=== PATIENT | female | born 1985 | race Caucasian/White ===

== ENCOUNTER 2017-05-16 16:52 | Inpatient (IN) | payer MEDICAID ==
[~2017-05-16] VITALS: Ht 170.2 cm; Wt 114.2 kg
[~2017-05-16 16:52] MED LIST: DIAZ2TAB PO; HYDR-3240 PO; LEVO175T5 PO; POLY17PO5 PO
[2017-05-16] MEDS ORDERED: LIDOCAINE 1%, 20ML SQ ONE (17:30)
[2017-05-16] MEDS ORDERED: HYDROmorphone 1 MG/ML, 1ML IVPush PRN (17:30)
[2017-05-16] MEDS ORDERED: CLINDAMYCIN PMX 900MG/50ML 50 ML IVPB ONE (17:30)
[2017-05-16] MEDS ORDERED: SODIUM CHLORIDE FLUSH 10ML SYR IVF ONE (17:30)
[2017-05-16] MEDS ORDERED: ONDANSETRON 2MG/ML, 2ML IVPush ONE (17:30)
[2017-05-16] MEDS ORDERED: SODIUM CHLORIDE 0.9% 1,000ML IVBOLUS ONE (17:30)
[2017-05-16] MEDS ORDERED: HYDROmorphone 1 MG/ML, 1ML ONE ×2 (18:22→19:50)
[2017-05-16] MEDS ORDERED: ONDANSETRON 2MG/ML, 2ML ONE (18:22)
[2017-05-16] MEDS ORDERED: LIDOCAINE 1%, 20ML ONE (18:22)
[2017-05-16] MEDS ORDERED: CLINDAMYCIN PMX 900MG/50ML 50 ML ONE (18:22)
[2017-05-16 19:12] LABS: HEMATOCRIT 37.2 % (34.6-47.8); HEMOGLOBIN 12.4 g/dL (11.7-16.4); WHITE BLOOD COUNT 17.3 x10^3/uL (3.4-10)
[2017-05-16 19:23] LABS: BLOOD UREA NITROGEN 9 mg/dL (7-18)
[2017-05-16] MEDS: KETOROLAC 30 MG/1 ML IVPush SCH (20:30)
[2017-05-16] MEDS: HEPARIN 5,000 UNITS/ML, 1ML SQ SCH (20:30)
[2017-05-16] MEDS ORDERED: BISACODYL 10 MG SUPP PR PRN (20:30)
[2017-05-16] MEDS ORDERED: ACETAMINOPHEN 325 MG TABLET PO PRN (20:30)
[2017-05-16] MEDS: SODIUM CHLORIDE FLUSH 10ML SYR IVF SCH (21:00)
[2017-05-16 21:10] VITALS: BP 113/75
[2017-05-17] MEDS: HYDROcodone/APAP 5/325 TABLET PO PRN ×3 (00:50→17:02)
[2017-05-17 00:53] VITALS: BP 118/77
[2017-05-17 01:48] VITALS: BP 113/79
[2017-05-17] MEDS: KETOROLAC 30 MG/1 ML IVPush SCH ×5 (02:30→21:23)
[2017-05-17] MEDS: CLINDAMYCIN PMX 600MG/50ML 50 ML IV SCH ×3 (03:36→21:24)
[2017-05-17] MEDS: HEPARIN 5,000 UNITS/ML, 1ML SQ SCH ×3 (04:30→21:23)
[2017-05-17 05:46] LABS: HEMATOCRIT 35.2 % (34.6-47.8); HEMOGLOBIN 11.8 g/dL (11.7-16.4); WHITE BLOOD COUNT 14.4 x10^3/uL (3.4-10)
[2017-05-17 06:02] LABS: BLOOD UREA NITROGEN 11 mg/dL (7-18)
[2017-05-17 06:07] LABS: ASPARTATE AMINO TRANSFERASE 51 U/L (15-37)
[2017-05-17] MEDS ORDERED: PNEUMOCOCCAL 23 VACCINE IM-VACC ONE (07:30)
[2017-05-17] MEDS ORDERED: FLU VACC QS2017-18 (36MOS+) UP/PF 0.5 ML IM-VACC ONE (07:30)
[2017-05-17 07:50] VITALS: BP 102/70
[2017-05-17] MEDS: LEVOTHYROXINE 175 MCG TABLET PO SCH (09:00)
[2017-05-17] MEDS: SENNA/DOCUSATE TABLET PO SCH (09:00)
[2017-05-17] MEDS: SODIUM CHLORIDE FLUSH 10ML SYR IVF SCH ×2 (09:13→21:31)
[2017-05-17] MEDS: ONDANSETRON 2MG/ML, 2ML IVPush PRN ×2 (09:48→17:02)
[2017-05-17 14:12] VITALS: BP 109/67
[2017-05-17] MEDS: LACTOBACILLUS CHEW TABLET PO SCH ×3 (14:54→21:24)
[2017-05-17] MEDS: FERROUS SULFATE 325 MG TABLET PO SCH (17:02)
[2017-05-17 19:52] VITALS: BP 104/67
[2017-05-18 01:56] VITALS: BP 98/67
[2017-05-18] MEDS: KETOROLAC 30 MG/1 ML IVPush SCH ×4 (02:33→23:51)
[2017-05-18 05:42] LABS: HEMOGLOBIN 11.5 g/dL (11.7-16.4); WHITE BLOOD COUNT 12.7 x10^3/uL (3.4-10)
[2017-05-18] MEDS: LEVOTHYROXINE 175 MCG TABLET PO SCH (05:47)
[2017-05-18] MEDS: CLINDAMYCIN PMX 600MG/50ML 50 ML IV SCH ×3 (05:47→20:31)
[2017-05-18] MEDS: HEPARIN 5,000 UNITS/ML, 1ML SQ SCH ×3 (05:48→20:31)
[2017-05-18 07:56] VITALS: BP 102/61
[2017-05-18] MEDS: LACTOBACILLUS CHEW TABLET PO SCH ×3 (10:25→20:31)
[2017-05-18] MEDS: FERROUS SULFATE 325 MG TABLET PO SCH ×2 (10:25→17:58)
[2017-05-18] MEDS: SENNA/DOCUSATE TABLET PO SCH (10:25)
[2017-05-18] MEDS: SODIUM CHLORIDE FLUSH 10ML SYR IVF SCH ×2 (10:26→20:32)
[2017-05-18] MEDS: HYDROcodone/APAP 5/325 TABLET PO PRN ×2 (12:33→18:10)
[2017-05-18 13:42] VITALS: BP 104/69
[2017-05-18 19:00] VITALS: BP 118/76
[2017-05-19] MEDS: HYDROcodone/APAP 5/325 TABLET PO PRN ×3 (00:17→20:05)
[2017-05-19 01:30] VITALS: BP 121/72
[2017-05-19] MEDS: CLINDAMYCIN PMX 600MG/50ML 50 ML IV SCH ×3 (03:56→20:05)
[2017-05-19] MEDS: HEPARIN 5,000 UNITS/ML, 1ML SQ SCH ×3 (03:56→20:05)
[2017-05-19] MEDS: LEVOTHYROXINE 175 MCG TABLET PO SCH (05:48)
[2017-05-19] MEDS: KETOROLAC 30 MG/1 ML IVPush SCH ×3 (05:48→18:00)
[2017-05-19 06:04] LABS: HEMATOCRIT 34.4 % (34.6-47.8); HEMOGLOBIN 11.3 g/dL (11.7-16.4); WHITE BLOOD COUNT 13.7 x10^3/uL (3.4-10)
[2017-05-19 07:41] VITALS: BP 106/70
[2017-05-19] MEDS: SENNA/DOCUSATE TABLET PO SCH (10:32)
[2017-05-19] MEDS: LACTOBACILLUS CHEW TABLET PO SCH ×3 (10:32→20:05)
[2017-05-19] MEDS: SODIUM CHLORIDE FLUSH 10ML SYR IVF SCH ×2 (10:32→20:06)
[2017-05-19] MEDS: FERROUS SULFATE 325 MG TABLET PO SCH ×2 (10:32→17:00)
[2017-05-19 13:55] VITALS: BP 108/67
[2017-05-19 18:42] VITALS: BP 107/63
[2017-05-19] MEDS: POLYETHYLENE GLYCOL 17 GM PACKET PO PRN (20:05)
[2017-05-20 01:46] VITALS: BP 100/68
[2017-05-20] MEDS: CLINDAMYCIN PMX 600MG/50ML 50 ML IV SCH ×3 (04:06→20:38)
[2017-05-20] MEDS: HEPARIN 5,000 UNITS/ML, 1ML SQ SCH ×3 (04:06→20:38)
[2017-05-20] MEDS: KETOROLAC 30 MG/1 ML IVPush SCH ×5 (05:31→23:59)
[2017-05-20] MEDS: LEVOTHYROXINE 175 MCG TABLET PO SCH (05:32)
[2017-05-20 05:51] LABS: HEMATOCRIT 34.4 % (34.6-47.8); HEMOGLOBIN 11.6 g/dL (11.7-16.4); WHITE BLOOD COUNT 17.6 x10^3/uL (3.4-10)
[2017-05-20 06:00] LABS: ASPARTATE AMINO TRANSFERASE 19 U/L (15-37); BLOOD UREA NITROGEN 12 mg/dL (7-18)
[2017-05-20 07:15] VITALS: BP 107/72
[2017-05-20] MEDS: FERROUS SULFATE 325 MG TABLET PO SCH ×2 (09:34→17:30)
[2017-05-20] MEDS: LACTOBACILLUS CHEW TABLET PO SCH ×3 (09:34→20:38)
[2017-05-20] MEDS: HYDROcodone/APAP 5/325 TABLET PO PRN ×2 (09:34→23:59)
[2017-05-20] MEDS: SODIUM CHLORIDE FLUSH 10ML SYR IVF SCH ×2 (09:34→20:38)
[2017-05-20] MEDS: SENNA/DOCUSATE TABLET PO SCH (09:34)
[2017-05-20 13:31] VITALS: BP 112/78
[2017-05-20] MEDS: POLYETHYLENE GLYCOL 17 GM PACKET PO PRN (17:30)
[2017-05-20 18:54] VITALS: BP 99/62
[2017-05-20] MEDS ORDERED: BISACODYL 10 MG SUPP PR PRN (19:00)
[2017-05-20] MEDS ORDERED: ACETAMINOPHEN 325 MG TABLET PO PRN (19:00)
[2017-05-21 01:33] VITALS: BP 116/78
[2017-05-21] MEDS: CLINDAMYCIN PMX 600MG/50ML 50 ML IV SCH ×3 (03:39→21:06)
[2017-05-21 05:57] LABS: HEMATOCRIT 34.6 % (34.6-47.8); HEMOGLOBIN 11.5 g/dL (11.7-16.4); WHITE BLOOD COUNT 19.3 x10^3/uL (3.4-10)
[2017-05-21] MEDS: KETOROLAC 30 MG/1 ML IVPush SCH ×3 (06:01→17:58)
[2017-05-21] MEDS: HEPARIN 5,000 UNITS/ML, 1ML SQ SCH ×3 (06:02→21:10)
[2017-05-21] MEDS: LEVOTHYROXINE 175 MCG TABLET PO SCH (06:02)
[2017-05-21] MEDS: SENNA/DOCUSATE TABLET PO SCH ×2 (09:00→09:17)
[2017-05-21] MEDS: LACTOBACILLUS CHEW TABLET PO SCH ×4 (09:00→21:06)
[2017-05-21] MEDS: FERROUS SULFATE 325 MG TABLET PO SCH ×2 (09:17→16:30)
[2017-05-21] MEDS: SODIUM CHLORIDE FLUSH 10ML SYR IVF SCH ×2 (09:18→21:10)
[2017-05-21] MEDS: ONDANSETRON 2MG/ML, 2ML IVPush PRN (09:31)
[2017-05-21 09:40] VITALS: BP 115/76
[2017-05-21] MEDS ORDERED: LACTULOSE 20 GM/30 ML UDC PO PRN (13:00)
[2017-05-21 15:21] VITALS: BP 102/57
[2017-05-21 18:58] VITALS: BP 143/85
[2017-05-21 19:02] VITALS: BP 111/75
[2017-05-21] MEDS: HYDROcodone/APAP 5/325 TABLET PO PRN (21:10)
[2017-05-22 01:31] VITALS: BP 104/70
[2017-05-22] MEDS: HEPARIN 5,000 UNITS/ML, 1ML SQ SCH ×2 (05:52→14:00)
[2017-05-22] MEDS: CLINDAMYCIN PMX 600MG/50ML 50 ML IV SCH ×2 (05:52→12:42)
[2017-05-22] MEDS: LEVOTHYROXINE 175 MCG TABLET PO SCH (05:52)
[2017-05-22 06:06] LABS: HEMATOCRIT 35.3 % (34.6-47.8); HEMOGLOBIN 11.8 g/dL (11.7-16.4); WHITE BLOOD COUNT 19.5 x10^3/uL (3.4-10)
[2017-05-22 06:34] LABS: ASPARTATE AMINO TRANSFERASE 49 U/L (15-37); BLOOD UREA NITROGEN 10 mg/dL (7-18)
[2017-05-22 07:07] VITALS: BP 97/68
[2017-05-22] MEDS: FERROUS SULFATE 325 MG TABLET PO SCH ×2 (08:15→16:30)
[2017-05-22] MEDS: POLYETHYLENE GLYCOL 17 GM PACKET PO PRN (08:15)
[2017-05-22] MEDS: LACTOBACILLUS CHEW TABLET PO SCH ×2 (08:15→16:30)
[2017-05-22] MEDS: SODIUM CHLORIDE FLUSH 10ML SYR IVF SCH (08:15)
[2017-05-22] MEDS: SENNA/DOCUSATE TABLET PO SCH (08:15)
[2017-05-22] MEDS ORDERED: LACTULOSE 20 GM/30 ML UDC PO PRN (11:30)
[2017-05-22] MEDS: LACTULOSE 20 GM/30 ML UDC PO SCH ×3 (12:42→17:01)
[2017-05-22 15:03] VITALS: BP 98/65
[2017-05-22] MEDS ORDERED: LEVO175T5 PO (16:47)
[2017-05-22] MEDS ORDERED: CLIN75CA2 PO (16:47)
== END 2017-05-22 18:45 | disposition home or self-care (01) | DRG 602 ==
LOC: ED 20:20 → EDIP 20:24 → 3NE 21:00
PROVIDERS: ADMIT Hospitalist; ATTEND Hospitalist
DX: L03.213 Periorbital cellulitis (principal); E43 Unspecified severe protein-calorie malnutrition; C91.10 Chronic lymphocytic leukemia of B-cell type not having achieved remission; E66.01 Morbid (severe) obesity due to excess calories; D50.9 Iron deficiency anemia, unspecified; F17.210 Nicotine dependence, cigarettes, uncomplicated; E89.0 Postprocedural hypothyroidism; F12.90 Cannabis use, unspecified, uncomplicated; F41.1 Generalized anxiety disorder; H00.031 Abscess of right upper eyelid; K59.00 Constipation, unspecified; Z81.8 Family history of other mental and behavioral disorders; Z85.850 Personal history of malignant neoplasm of thyroid; Z88.0 Allergy status to penicillin; Z91.19 Patient's noncompliance with other medical treatment and regimen; Z68.39 Body mass index [BMI] 39.0-39.9, adult
CPT/HCPCS: 36415; 80048; 80053; 82040; 82728; 83540; 83550; 84439; 84443; 85025; 87040; 90732; 96365; 96372; 96375; J1170; J1644; J1885; J2405; J7030

== ENCOUNTER 2017-07-16 05:17 | Emergency (ER) | payer MEDICAID ==
[~2017-07-16] VITALS: Ht 170.2 cm; Wt 109.1 kg
[~2017-07-16 05:17] MED LIST changes: +CLIN75CA2 PO
[2017-07-16] MEDS ORDERED: morphine SULFATE 10 MG/ML, 1ML ONE (05:51)
[2017-07-16] MEDS ORDERED: ONDANSETRON 2MG/ML, 2ML ONE (05:51)
[2017-07-16] MEDS ORDERED: SODIUM CHLORIDE FLUSH 10ML SYR IVF ONE (06:00)
[2017-07-16] MEDS ORDERED: ONDANSETRON 2MG/ML, 2ML IVPush ONE (06:00)
[2017-07-16] MEDS ORDERED: MORPHINE SULFATE 4 MG/ML, 1ML IVPush PRN (06:00)
[2017-07-16 06:37] VITALS: BP 130/58
== END 2017-07-16 06:40 | disposition home or self-care (01) ==
LOC: ED 06:00
DX: S93.491A Sprain of other ligament of right ankle, initial encounter (principal); F17.210 Nicotine dependence, cigarettes, uncomplicated; E03.9 Hypothyroidism, unspecified; W10.9XXA Fall (on) (from) unspecified stairs and steps, initial encounter; Y93.01 Activity, walking, marching and hiking; Y92.89 Other specified places as the place of occurrence of the external cause; Y99.8 Other external cause status
CPT/HCPCS: 73610; 96374; 96375; 99284; J2405

== ENCOUNTER 2017-12-15 02:40 | Emergency (ER) | payer OTHER, MEDICAID ==
[~2017-12-15] VITALS: Ht 167.6 cm; Wt 114.9 kg
[2017-12-15] MEDS ORDERED: SODIUM CHLORIDE FLUSH 10ML SYR IVF ONE (03:30)
[2017-12-15] MEDS ORDERED: OMNIPAQUE 350 MG/ML, 100ML BOTTLE ONE (04:07)
[2017-12-15 05:15] VITALS: BP 133/77
== END 2017-12-15 05:16 | disposition home or self-care (01) ==
LOC: ED 02:48
DX: S16.1XXA Strain of muscle, fascia and tendon at neck level, initial encounter (principal); S39.012A Strain of muscle, fascia and tendon of lower back, initial encounter; R10.84 Generalized abdominal pain; F15.10 Other stimulant abuse, uncomplicated; E03.9 Hypothyroidism, unspecified; Z90.49 Acquired absence of other specified parts of digestive tract; V89.2XXA Person injured in unspecified motor-vehicle accident, traffic, initial encounter; Y93.89 Activity, other specified; Y92.89 Other specified places as the place of occurrence of the external cause; Y99.8 Other external cause status
CPT/HCPCS: 72125; 72131; 74177; 99284; Q9967

== ENCOUNTER 2018-02-23 00:10 | Inpatient (IN) | payer MEDICAID ==
[~2018-02-23] VITALS: Ht 170.2 cm; Wt 112.4 kg
[2018-02-23] MEDS ORDERED: HYDROcodone/APAP 5/325 TABLET ONE (00:59)
[2018-02-23] MEDS ORDERED: HYDROcodone/APAP 5/325 TABLET PO ONE (01:00)
[2018-02-23 01:30] LABS: ANION GAP 9 mmol/L (5-15); CALCIUM 9.2 mg/dL (8.5-10.1); CHLORIDE 106 mmol/L (98-107); CREATININE 1.06 mg/dL (0.55-1.02)
[2018-02-23 01:49] LABS: BASOPHILS # (AUTO) 0.07 x10^3/uL (0-0.1); BASOPHILS % (AUTO) 0 % (0-1); EOSINOPHILS # (AUTO) 0.39 x10^3/uL (0-0.4); EOSINOPHILS % (AUTO) 2 % (1-7); LYMPHOCYTES # (AUTO) 3.23 x10^3/uL (1-3.4); LYMPHOCYTES % (AUTO) 20 % (22-44); MD NO; MEAN CORPUSCULAR HEMOGLOBIN 24.5 pg (27.0-34.8); MEAN CORPUSCULAR VOLUME 74.3 fL (80-100); MEAN PLATELET VOLUME 7.4 fL (7.4-10.4); MONOCYTES # (AUTO) 1.15 x10^3/uL (0.2-0.8); MONOCYTES % (AUTO) 7 % (2-9); NEUTROPHILS # (AUTO) 11.68 x10^3/uL (1.8-6.8); NEUTROPHILS % (AUTO) 71 % (42-75); PLATELET COUNT 446 x10^3/uL (130-400); RED BLOOD COUNT 5.08 x10^6/uL (3.82-5.3); RED CELL DISTRIBUTION WIDTH 16.6 % (9.6-15.2)
[2018-02-23] MEDS ORDERED: CLINDAMYCIN PMX 600MG/50ML 50 ML IV ONE (02:30)
[2018-02-23] MEDS ORDERED: CLINDAMYCIN PMX 600MG/50ML 50 ML ONE (02:37)
[2018-02-23] MEDS ORDERED: hydrALAzine 20 MG/ML, 1ML IVPush PRN (03:00)
[2018-02-23] MEDS ORDERED: POLYETHYLENE GLYCOL 17 GM PACKET PO PRN (03:00)
[2018-02-23] MEDS ORDERED: ACETAMINOPHEN 325 MG TABLET PO PRN (03:00)
[2018-02-23] MEDS ORDERED: DOCUSATE 100 MG CAPSULE PO PRN (03:00)
[2018-02-23] MEDS ORDERED: BISACODYL 10 MG SUPP PR PRN (03:00)
[2018-02-23] MEDS: SODIUM CHLORIDE 0.9% 1,000 ML IV SCH ×2 (03:23→13:38)
[2018-02-23 03:37] LABS: FREE T4 (FREE THYROXINE) 0.73 ng/dL (0.76-1.46)
[2018-02-23] MEDS: CEFTAROLINE 600 MG in SODIUM CHLORIDE 0.9% 100 ML IV SCH ×2 (03:37→15:48)
[2018-02-23] MEDS: morphine SULFATE 10 MG/ML, 1ML IVPush PRN ×3 (03:37→17:25)
[2018-02-23] MEDS: OXYcodone IR 5MG TABLET PO PRN ×4 (03:37→20:41)
[2018-02-23] MEDS: ONDANSETRON 2MG/ML, 2ML IVPush PRN ×2 (03:38→17:32)
[2018-02-23] MEDS: HEPARIN 5,000 UNITS/ML, 1ML SQ SCH ×3 (03:38→19:43)
[2018-02-23] MEDS ORDERED: LEVOTHYROXINE 175 MCG TABLET PO SCH (06:00)
[2018-02-23 07:16] VITALS: BP 92/62
[2018-02-23 07:29] LABS: HEMOGLOBIN A1C 5.5 % (4.2-6.3)
[2018-02-23] MEDS: POLYETHYLENE GLYCOL 17 GM PACKET PO SCH (08:39)
[2018-02-23 12:43] VITALS: BP 100/62
[2018-02-23 17:54] LABS: MICROSCOPIC NOT IND
[2018-02-23 18:05] LABS: CULTURE INDICATED? NO
[2018-02-23 19:47] VITALS: BP 96/64
[2018-02-23 20:00] VITALS: BP 98/65
[2018-02-24 02:05] VITALS: BP 98/65
[2018-02-24] MEDS: CEFTAROLINE 600 MG in SODIUM CHLORIDE 0.9% 100 ML IV SCH ×2 (02:57→15:48)
[2018-02-24] MEDS: HEPARIN 5,000 UNITS/ML, 1ML SQ SCH ×3 (02:57→19:50)
[2018-02-24] MEDS: OXYcodone IR 5MG TABLET PO PRN ×5 (03:44→21:27)
[2018-02-24 04:39] LABS: ALBUMIN 2.9 g/dL (3.4-5.0); ANION GAP 5 mmol/L (5-15); CHLORIDE 107 mmol/L (98-107); CHOLESTEROL, TOTAL 118 mg/dL (140-239)
[2018-02-24 04:42] LABS: ALANINE AMINOTRANSFERASE 180 U/L (12-78); ALKALINE PHOSPHATASE 113 U/L (45-117); BILIRUBIN,TOTAL 0.3 mg/dL (0.2-1.0); CHOL/HDL RATIO 2.5; CREATININE 0.87 mg/dL (0.55-1.02); HDL CHOL % 40 % (28-40); HDL CHOLESTEROL (DIRECT) 47 mg/dL (40-60); LDL CHOLESTEROL,CALCULATED 47 mg/dL (54-169); TOTAL IRON BINDING CAPACITY 488 mcg/dL (250-450); TOTAL PROTEIN 7.5 g/dL (6.4-8.2); TRANSFERRIN 265 mg/dL (200-360); TRIGLYCERIDES 118 mg/dL (50-200); VLDL CHOLESTEROL 24 mg/dL (0-25)
[2018-02-24 04:44] LABS: % IRON SATURATION 9 % (20-55); IRON LEVEL 43 mcg/dL (50-170)
[2018-02-24] MEDS: LEVOTHYROXINE 200 MCG TABLET PO SCH (04:51)
[2018-02-24 06:44] LABS: BASOPHILS # (AUTO) 0.11 x10^3/uL (0-0.1); BASOPHILS % (AUTO) 1 % (0-1); EOSINOPHILS # (AUTO) 0.42 x10^3/uL (0-0.4); EOSINOPHILS % (AUTO) 3 % (1-7); LYMPHOCYTES # (AUTO) 2.44 x10^3/uL (1-3.4); LYMPHOCYTES % (AUTO) 18 % (22-44); MD NO; MEAN CORPUSCULAR HEMOGLOBIN 24.3 pg (27.0-34.8); MEAN CORPUSCULAR HGB CONC 32.6 g/dL (32.4-35.8); MEAN CORPUSCULAR VOLUME 74.8 fL (80-100); MONOCYTES # (AUTO) 0.95 x10^3/uL (0.2-0.8); MONOCYTES % (AUTO) 7 % (2-9); NEUTROPHILS # (AUTO) 9.67 x10^3/uL (1.8-6.8); NEUTROPHILS % (AUTO) 71 % (42-75); PLATELET COUNT 314 x10^3/uL (130-400); RED BLOOD COUNT 4.43 x10^6/uL (3.82-5.3); RED CELL DISTRIBUTION WIDTH 16.5 % (9.6-15.2)
[2018-02-24 08:19] VITALS: BP 99/66
[2018-02-24] MEDS: POLYETHYLENE GLYCOL 17 GM PACKET PO SCH (08:28)
[2018-02-24] MEDS: IRON SUCROSE COMPLEX 100MG/5ML IV SCH (12:24)
[2018-02-24 13:55] VITALS: BP 103/68
[2018-02-24 19:16] VITALS: BP 104/68
[2018-02-25 02:31] VITALS: BP 108/68
[2018-02-25] MEDS: CEFTAROLINE 600 MG in SODIUM CHLORIDE 0.9% 100 ML IV SCH ×2 (03:43→15:44)
[2018-02-25 04:26] LABS: BASOPHILS # (AUTO) 0.03 x10^3/uL (0-0.1); BASOPHILS % (AUTO) 0 % (0-1); EOSINOPHILS % (AUTO) 3 % (1-7); LYMPHOCYTES # (AUTO) 2.03 x10^3/uL (1-3.4); LYMPHOCYTES % (AUTO) 17 % (22-44); MD NO; MEAN CORPUSCULAR HEMOGLOBIN 24.1 pg (27.0-34.8); MEAN CORPUSCULAR HGB CONC 32.7 g/dL (32.4-35.8); MEAN CORPUSCULAR VOLUME 73.8 fL (80-100); MEAN PLATELET VOLUME 7.1 fL (7.4-10.4); MONOCYTES # (AUTO) 1.01 x10^3/uL (0.2-0.8); MONOCYTES % (AUTO) 9 % (2-9); NEUTROPHILS # (AUTO) 8.53 x10^3/uL (1.8-6.8); NEUTROPHILS % (AUTO) 72 % (42-75); PLATELET COUNT 334 x10^3/uL (130-400); RED CELL DISTRIBUTION WIDTH 16.7 % (9.6-15.2)
[2018-02-25 04:34] LABS: ALBUMIN 2.6 g/dL (3.4-5.0); ANION GAP 4 mmol/L (5-15); CALCIUM 8.1 mg/dL (8.5-10.1); CHLORIDE 105 mmol/L (98-107); CREATININE 0.95 mg/dL (0.55-1.02)
[2018-02-25] MEDS: LEVOTHYROXINE 200 MCG TABLET PO SCH (05:39)
[2018-02-25] MEDS: HEPARIN 5,000 UNITS/ML, 1ML SQ SCH (05:39)
[2018-02-25 07:26] VITALS: BP 106/68
[2018-02-25] MEDS: OXYcodone IR 5MG TABLET PO PRN (07:35)
[2018-02-25] MEDS: POLYETHYLENE GLYCOL 17 GM PACKET PO SCH (07:36)
[2018-02-25] MEDS: IRON SUCROSE COMPLEX 100MG/5ML IV SCH (07:36)
[2018-02-25] MEDS: ONDANSETRON ODT 4 MG PO PRN ×3 (09:28→21:29)
[2018-02-25 12:59] VITALS: BP 105/72
[2018-02-25] MEDS: KETOROLAC 30 MG/1 ML IVPush SCH ×2 (15:45→20:30)
[2018-02-25] MEDS: PROMETHAZINE 25 MG/ML, 1ML IM PRN ×2 (17:08→23:04)
[2018-02-25] MEDS: ONDANSETRON 2MG/ML, 2ML IVPush PRN (18:00)
[2018-02-25 19:12] VITALS: BP 103/69
[2018-02-25] MEDS ORDERED: SODIUM CHLORIDE 0.9% 1,000 ML IV SCH (22:00)
[2018-02-26 02:25] VITALS: BP 110/78
[2018-02-26] MEDS: KETOROLAC 30 MG/1 ML IVPush SCH ×2 (02:28→08:30)
[2018-02-26] MEDS: ONDANSETRON 2MG/ML, 2ML IVPush PRN (02:32)
[2018-02-26] MEDS: CEFTAROLINE 600 MG in SODIUM CHLORIDE 0.9% 100 ML IV SCH ×3 (02:55→20:35)
[2018-02-26] MEDS: PROMETHAZINE 25 MG/ML, 1ML IM PRN (04:25)
[2018-02-26] MEDS: LEVOTHYROXINE 200 MCG TABLET PO SCH (05:39)
[2018-02-26 07:14] VITALS: BP 104/72
[2018-02-26 07:23] LABS: ALANINE AMINOTRANSFERASE 105 U/L (12-78); ALBUMIN 2.8 g/dL (3.4-5.0); ANION GAP 7 mmol/L (5-15); CALCIUM 8.6 mg/dL (8.5-10.1); CHLORIDE 106 mmol/L (98-107); MEAN CORPUSCULAR HEMOGLOBIN 24.3 pg (27.0-34.8); MEAN CORPUSCULAR HGB CONC 32.9 g/dL (32.4-35.8); MEAN CORPUSCULAR VOLUME 73.8 fL (80-100); MEAN PLATELET VOLUME 6.9 fL (7.4-10.4); PLATELET COUNT 387 x10^3/uL (130-400); RED BLOOD COUNT 4.55 x10^6/uL (3.82-5.3); RED CELL DISTRIBUTION WIDTH 16.5 % (9.6-15.2)
[2018-02-26 07:26] LABS: ALKALINE PHOSPHATASE 116 U/L (45-117); BILIRUBIN,TOTAL 0.3 mg/dL (0.2-1.0); CREATININE 0.78 mg/dL (0.55-1.02); TOTAL PROTEIN 7.6 g/dL (6.4-8.2)
[2018-02-26 07:41] LABS: BASOPHILS # (AUTO) 0.05 x10^3/uL (0-0.1); BASOPHILS % (AUTO) 0 % (0-1); EOSINOPHILS # (AUTO) 0.05 x10^3/uL (0-0.4); EOSINOPHILS % (AUTO) 0 % (1-7); LYMPHOCYTES # (AUTO) 1.83 x10^3/uL (1-3.4); LYMPHOCYTES % (AUTO) 11 % (22-44); MD SCAN; MONOCYTES # (AUTO) 0.91 x10^3/uL (0.2-0.8); MONOCYTES % (AUTO) 6 % (2-9); NEUTROPHILS % (AUTO) 83 % (42-75)
[2018-02-26] MEDS: POLYETHYLENE GLYCOL 17 GM PACKET PO SCH (09:00)
[2018-02-26] MEDS: IRON SUCROSE COMPLEX 100MG/5ML IV SCH (09:00)
[2018-02-26] MEDS ORDERED: IBUPROFEN 200 MG TABLET PO PRN (12:00)
[2018-02-26] MEDS: ENOXAPARIN 40 MG/0.4 ML SQ SCH (13:09)
[2018-02-26 13:43] VITALS: BP 106/69
[2018-02-26 19:07] VITALS: BP 127/85
[2018-02-27 03:30] VITALS: BP 104/72
[2018-02-27 04:45] LABS: BASOPHILS # (AUTO) 0.08 x10^3/uL (0-0.1); BASOPHILS % (AUTO) 1 % (0-1); EOSINOPHILS # (AUTO) 0.33 x10^3/uL (0-0.4); EOSINOPHILS % (AUTO) 3 % (1-7); LYMPHOCYTES # (AUTO) 2.75 x10^3/uL (1-3.4); LYMPHOCYTES % (AUTO) 21 % (22-44); MD NO; MEAN CORPUSCULAR HEMOGLOBIN 24.5 pg (27.0-34.8); MEAN CORPUSCULAR HGB CONC 33.3 g/dL (32.4-35.8); MEAN CORPUSCULAR VOLUME 73.8 fL (80-100); MEAN PLATELET VOLUME 6.9 fL (7.4-10.4); MONOCYTES # (AUTO) 0.88 x10^3/uL (0.2-0.8); MONOCYTES % (AUTO) 7 % (2-9); NEUTROPHILS # (AUTO) 9.12 x10^3/uL (1.8-6.8); NEUTROPHILS % (AUTO) 69 % (42-75); PLATELET COUNT 413 x10^3/uL (130-400); RED BLOOD COUNT 4.71 x10^6/uL (3.82-5.3); RED CELL DISTRIBUTION WIDTH 16.1 % (9.6-15.2)
[2018-02-27] MEDS: LEVOTHYROXINE 200 MCG TABLET PO SCH (06:08)
[2018-02-27 06:49] VITALS: BP 93/58
[2018-02-27] MEDS: POLYETHYLENE GLYCOL 17 GM PACKET PO SCH ×2 (07:51→07:56)
[2018-02-27] MEDS: ONDANSETRON 2MG/ML, 2ML IVPush PRN (07:51)
[2018-02-27] MEDS: IRON SUCROSE COMPLEX 100MG/5ML IV SCH (07:51)
[2018-02-27] MEDS: OXYcodone IR 5MG TABLET PO PRN ×3 (07:51→21:12)
[2018-02-27] MEDS: CEFTAROLINE 600 MG in SODIUM CHLORIDE 0.9% 100 ML IV SCH ×2 (08:46→20:40)
[2018-02-27 09:13] LABS: HCG UR SG 1.025 (1.003-1.030)
[2018-02-27] MEDS ORDERED: FENTANYL PF 100 MCG/2ML ONE ×2 (09:57→11:13)
[2018-02-27] MEDS ORDERED: MIDAZOLAM 1 MG/ML, 2ML ONE (09:57)
[2018-02-27] MEDS ORDERED: KETOROLAC 30 MG/1 ML ONE (10:09)
[2018-02-27] MEDS ORDERED: PROPOFOL 10 MG/ML, 20ML ONE (10:09)
[2018-02-27] MEDS ORDERED: ONDANSETRON 2MG/ML, 2ML ONE (10:09)
[2018-02-27] MEDS ORDERED: DEXAMETHASONE 4 MG/ML, 1ML ONE (10:09)
[2018-02-27] MEDS ORDERED: NEOSPORIN OINT. PKT 1 PACKET ONE (10:38)
[2018-02-27] MEDS ORDERED: MEPERIDINE/PF 50 MG/ML ONE (10:57)
[2018-02-27] MEDS ORDERED: LORazepam 2 MG/ML, 1ML IVPush PRN (11:00)
[2018-02-27] MEDS ORDERED: PROMETHAZINE 25 MG/ML, 1ML IV PRN (11:00)
[2018-02-27] MEDS ORDERED: hydrALAzine 20 MG/ML, 1ML IV PRN (11:00)
[2018-02-27] MEDS ORDERED: FENTANYL PF 100 MCG/2ML IV PRN (11:00)
[2018-02-27] MEDS ORDERED: MEPERIDINE/PF 25MG/0.5ML IVPush PRN (11:00)
[2018-02-27] MEDS ORDERED: ACETAMINOPHEN 325 MG TABLET PO PRN (11:00)
[2018-02-27] MEDS ORDERED: LABETALOL 5MG/ML, 20ML IV PRN (11:00)
[2018-02-27] MEDS ORDERED: ALBUTEROL SULFATE 2.5 MG/3 ML NPPB PRN (11:00)
[2018-02-27] MEDS: HYDROmorphone 1 MG/ML, 1ML IV PRN ×3 (11:06→11:25)
[2018-02-27] MEDS ORDERED: HYDROmorphone 2 MG/ML, 1ML ONE (11:06)
[2018-02-27] MEDS: ENOXAPARIN 40 MG/0.4 ML SQ SCH (12:08)
[2018-02-27 13:05] VITALS: BP 118/65
[2018-02-27] MEDS ORDERED: morphine SULFATE 10 MG/ML, 1ML IVPush PRN (15:00)
[2018-02-27] MEDS: FERROUS SULFATE 325 MG TABLET PO SCH (16:13)
[2018-02-27] MEDS: ACETAMINOPHEN 325 MG TABLET PO SCH ×2 (16:13→20:39)
[2018-02-27] MEDS: HEPARIN 5,000 UNITS/ML, 1ML SQ SCH (16:21)
[2018-02-27] MEDS: SODIUM CHLORIDE 0.9% 1,000 ML IV SCH ×2 (16:22→21:09)
[2018-02-27 19:17] VITALS: BP 117/64
[2018-02-28] MEDS: HEPARIN 5,000 UNITS/ML, 1ML SQ SCH ×3 (00:35→18:56)
[2018-02-28] MEDS: OXYcodone IR 5MG TABLET PO PRN ×4 (03:06→21:49)
[2018-02-28] MEDS: ACETAMINOPHEN 325 MG TABLET PO SCH ×4 (03:06→21:48)
[2018-02-28 03:08] VITALS: BP 106/64
[2018-02-28] MEDS: LEVOTHYROXINE 200 MCG TABLET PO SCH (05:43)
[2018-02-28 06:00] LABS: BASOPHILS # (AUTO) 0.08 x10^3/uL (0-0.1); BASOPHILS % (AUTO) 1 % (0-1); EOSINOPHILS # (AUTO) 0.14 x10^3/uL (0-0.4); EOSINOPHILS % (AUTO) 1 % (1-7); LYMPHOCYTES # (AUTO) 2.49 x10^3/uL (1-3.4); LYMPHOCYTES % (AUTO) 16 % (22-44); MD NO; MEAN CORPUSCULAR HEMOGLOBIN 24.8 pg (27.0-34.8); MEAN CORPUSCULAR HGB CONC 32.8 g/dL (32.4-35.8); MEAN CORPUSCULAR VOLUME 75.5 fL (80-100); MEAN PLATELET VOLUME 6.8 fL (7.4-10.4); MONOCYTES # (AUTO) 1.01 x10^3/uL (0.2-0.8); MONOCYTES % (AUTO) 6 % (2-9); NEUTROPHILS # (AUTO) 12.07 x10^3/uL (1.8-6.8); NEUTROPHILS % (AUTO) 77 % (42-75); PLATELET COUNT 390 x10^3/uL (130-400); RED BLOOD COUNT 4.23 x10^6/uL (3.82-5.3); RED CELL DISTRIBUTION WIDTH 16.6 % (9.6-15.2)
[2018-02-28 06:03] LABS: ALANINE AMINOTRANSFERASE 59 U/L (12-78); ALBUMIN 2.6 g/dL (3.4-5.0); ANION GAP 6 mmol/L (5-15); CALCIUM 7.8 mg/dL (8.5-10.1); CHLORIDE 108 mmol/L (98-107)
[2018-02-28 06:06] LABS: ALKALINE PHOSPHATASE 87 U/L (45-117); BILIRUBIN,TOTAL 0.3 mg/dL (0.2-1.0); CREATININE 0.89 mg/dL (0.55-1.02); TOTAL PROTEIN 6.9 g/dL (6.4-8.2)
[2018-02-28] MEDS ORDERED: MAGNESIUM CITRATE 300ML ORAL SOL PO ONE (07:00)
[2018-02-28] MEDS ORDERED: BISACODYL 10 MG SUPP PR ONE (07:00)
[2018-02-28 08:20] VITALS: BP 134/74
[2018-02-28] MEDS: CEFTAROLINE 600 MG in SODIUM CHLORIDE 0.9% 100 ML IV SCH ×2 (09:53→21:48)
[2018-02-28] MEDS: POLYETHYLENE GLYCOL 17 GM PACKET PO SCH (09:54)
[2018-02-28] MEDS: SODIUM CHLORIDE 0.9% 1,000 ML IV SCH (15:57)
[2018-02-28 16:03] VITALS: BP 119/73
[2018-02-28 19:45] VITALS: BP 117/68
[2018-03-01] MEDS: ACETAMINOPHEN 325 MG TABLET PO SCH ×4 (03:21→20:52)
[2018-03-01] MEDS: OXYcodone IR 5MG TABLET PO PRN ×4 (03:21→20:52)
[2018-03-01 03:22] VITALS: BP 103/53
[2018-03-01] MEDS: HEPARIN 5,000 UNITS/ML, 1ML SQ SCH ×3 (04:02→20:54)
[2018-03-01 05:20] LABS: BASOPHILS # (AUTO) 0.05 x10^3/uL (0-0.1); BASOPHILS % (AUTO) 0 % (0-1); EOSINOPHILS # (AUTO) 0.39 x10^3/uL (0-0.4); EOSINOPHILS % (AUTO) 3 % (1-7); LYMPHOCYTES # (AUTO) 3.03 x10^3/uL (1-3.4); LYMPHOCYTES % (AUTO) 26 % (22-44); MD NO; MEAN CORPUSCULAR HEMOGLOBIN 25.1 pg (27.0-34.8); MEAN CORPUSCULAR VOLUME 76.1 fL (80-100); MEAN PLATELET VOLUME 7.2 fL (7.4-10.4); MONOCYTES # (AUTO) 0.88 x10^3/uL (0.2-0.8); MONOCYTES % (AUTO) 8 % (2-9); NEUTROPHILS # (AUTO) 7.14 x10^3/uL (1.8-6.8); NEUTROPHILS % (AUTO) 62 % (42-75); PLATELET COUNT 310 x10^3/uL (130-400); RED BLOOD COUNT 4.16 x10^6/uL (3.82-5.3); RED CELL DISTRIBUTION WIDTH 16.7 % (9.6-15.2)
[2018-03-01] MEDS: LEVOTHYROXINE 200 MCG TABLET PO SCH (06:36)
[2018-03-01 08:00] VITALS: BP 110/66
[2018-03-01] MEDS: METHYLNALTREXONE 12 MG/0.6 ML SQ SCH (08:40)
[2018-03-01] MEDS: CEFTAROLINE 600 MG in SODIUM CHLORIDE 0.9% 100 ML IV SCH ×3 (08:40→22:20)
[2018-03-01] MEDS: POLYETHYLENE GLYCOL 17 GM PACKET PO SCH (09:00)
[2018-03-01] MEDS: SODIUM CHLORIDE 0.9% 1,000 ML IV SCH (13:45)
[2018-03-01 14:15] VITALS: BP 117/69
[2018-03-01] MEDS: FERROUS SULFATE 325 MG TABLET PO SCH ×2 (15:00→15:09)
[2018-03-01 19:30] VITALS: BP 109/77
[2018-03-02] MEDS: OXYcodone IR 5MG TABLET PO PRN (03:21)
[2018-03-02] MEDS: ACETAMINOPHEN 325 MG TABLET PO SCH ×4 (03:21→21:25)
[2018-03-02 03:27] VITALS: BP 104/63
[2018-03-02] MEDS: LEVOTHYROXINE 200 MCG TABLET PO SCH (05:38)
[2018-03-02] MEDS: CEFTAROLINE 600 MG in SODIUM CHLORIDE 0.9% 100 ML IV SCH ×3 (05:38→21:25)
[2018-03-02] MEDS: HEPARIN 5,000 UNITS/ML, 1ML SQ SCH ×3 (05:41→21:27)
[2018-03-02 05:50] LABS: BASOPHILS # (AUTO) 0.07 x10^3/uL (0-0.1); BASOPHILS % (AUTO) 1 % (0-1); EOSINOPHILS # (AUTO) 0.47 x10^3/uL (0-0.4); EOSINOPHILS % (AUTO) 4 % (1-7); LYMPHOCYTES # (AUTO) 2.46 x10^3/uL (1-3.4); LYMPHOCYTES % (AUTO) 21 % (22-44); MD NO; MEAN CORPUSCULAR VOLUME 75.9 fL (80-100); MEAN PLATELET VOLUME 7.2 fL (7.4-10.4); MONOCYTES # (AUTO) 0.97 x10^3/uL (0.2-0.8); MONOCYTES % (AUTO) 8 % (2-9); NEUTROPHILS # (AUTO) 7.66 x10^3/uL (1.8-6.8); NEUTROPHILS % (AUTO) 66 % (42-75); PLATELET COUNT 341 x10^3/uL (130-400); RED BLOOD COUNT 4.43 x10^6/uL (3.82-5.3); RED CELL DISTRIBUTION WIDTH 17.2 % (9.6-15.2)
[2018-03-02] MEDS ORDERED: PINK LADY ENEMA 490 ML BOTTLE PR ONE (07:00)
[2018-03-02 07:49] VITALS: BP 114/63
[2018-03-02] MEDS: POLYETHYLENE GLYCOL 17 GM PACKET PO SCH (09:00)
[2018-03-02 13:46] VITALS: BP 104/59
[2018-03-02] MEDS: SODIUM CHLORIDE 0.9% 1,000 ML IV SCH (13:49)
[2018-03-02 19:38] VITALS: BP 100/56
[2018-03-03] MEDS: ACETAMINOPHEN 325 MG TABLET PO SCH ×4 (03:00→20:25)
[2018-03-03 05:17] VITALS: BP 90/57
[2018-03-03] MEDS: CEFTAROLINE 600 MG in SODIUM CHLORIDE 0.9% 100 ML IV SCH ×3 (05:20→21:47)
[2018-03-03] MEDS: LEVOTHYROXINE 200 MCG TABLET PO SCH (05:20)
[2018-03-03] MEDS: HEPARIN 5,000 UNITS/ML, 1ML SQ SCH ×3 (05:23→20:25)
[2018-03-03 05:26] LABS: MEAN CORPUSCULAR HEMOGLOBIN 24.9 pg (27.0-34.8); MEAN CORPUSCULAR HGB CONC 32.8 g/dL (32.4-35.8); MEAN PLATELET VOLUME 7.1 fL (7.4-10.4); PLATELET COUNT 350 x10^3/uL (130-400); RED BLOOD COUNT 4.63 x10^6/uL (3.82-5.3); RED CELL DISTRIBUTION WIDTH 17.3 % (9.6-15.2)
[2018-03-03 06:11] LABS: BASOPHILS # (AUTO) 0.04 x10^3/uL (0-0.1); BASOPHILS % (AUTO) 0 % (0-1); EOSINOPHILS # (AUTO) 0.52 x10^3/uL (0-0.4); EOSINOPHILS % (AUTO) 4 % (1-7); LYMPHOCYTES # (AUTO) 2.37 x10^3/uL (1-3.4); LYMPHOCYTES % (AUTO) 19 % (22-44); MD SCAN; MONOCYTES # (AUTO) 0.87 x10^3/uL (0.2-0.8); MONOCYTES % (AUTO) 7 % (2-9); NEUTROPHILS % (AUTO) 70 % (42-75)
[2018-03-03 07:55] VITALS: BP 112/60
[2018-03-03] MEDS: METHYLNALTREXONE 12 MG/0.6 ML SQ SCH (08:30)
[2018-03-03] MEDS: POLYETHYLENE GLYCOL 17 GM PACKET PO SCH (08:31)
[2018-03-03] MEDS: DIPHENHYDRAMINE 50 MG/ML, 1ML IVPush PRN ×2 (08:39→21:47)
[2018-03-03] MEDS: SODIUM CHLORIDE 0.9% 1,000 ML IV SCH (08:39)
[2018-03-03] MEDS: FERROUS SULFATE 325 MG TABLET PO SCH (14:06)
[2018-03-03 14:40] VITALS: BP 126/76
[2018-03-03 20:26] VITALS: BP 106/60
[2018-03-04] MEDS: TEMAZEPAM 15 MG CAPSULE PO PRN ×2 (00:49→22:03)
[2018-03-04 00:50] VITALS: BP 114/70
[2018-03-04] MEDS: ACETAMINOPHEN 325 MG TABLET PO SCH ×4 (02:50→22:03)
[2018-03-04] MEDS: HEPARIN 5,000 UNITS/ML, 1ML SQ SCH ×3 (05:27→22:02)
[2018-03-04] MEDS: LEVOTHYROXINE 200 MCG TABLET PO SCH (05:27)
[2018-03-04] MEDS: SODIUM CHLORIDE 0.9% 1,000 ML IV SCH ×2 (05:27→22:36)
[2018-03-04 08:03] VITALS: BP 121/60
[2018-03-04] MEDS: CEFTAROLINE 600 MG in SODIUM CHLORIDE 0.9% 100 ML IV SCH ×2 (08:42→15:41)
[2018-03-04] MEDS: POLYETHYLENE GLYCOL 17 GM PACKET PO SCH (08:47)
[2018-03-04 14:21] VITALS: BP 94/54
[2018-03-04 19:50] VITALS: BP 110/61
[2018-03-05] MEDS: CEFTAROLINE 600 MG in SODIUM CHLORIDE 0.9% 100 ML IV SCH ×3 (01:03→17:08)
[2018-03-05] MEDS: ACETAMINOPHEN 325 MG TABLET PO SCH ×4 (03:31→22:18)
[2018-03-05 03:34] VITALS: BP 106/63
[2018-03-05 04:26] LABS: BASOPHILS # (AUTO) 0.03 x10^3/uL (0-0.1); BASOPHILS % (AUTO) 0 % (0-1); EOSINOPHILS # (AUTO) 0.51 x10^3/uL (0-0.4); EOSINOPHILS % (AUTO) 5 % (1-7); LYMPHOCYTES # (AUTO) 2.49 x10^3/uL (1-3.4); LYMPHOCYTES % (AUTO) 23 % (22-44); MD NO; MEAN CORPUSCULAR HEMOGLOBIN 25.4 pg (27.0-34.8); MEAN CORPUSCULAR HGB CONC 33.1 g/dL (32.4-35.8); MEAN CORPUSCULAR VOLUME 76.7 fL (80-100); MEAN PLATELET VOLUME 7.3 fL (7.4-10.4); MONOCYTES # (AUTO) 0.84 x10^3/uL (0.2-0.8); MONOCYTES % (AUTO) 8 % (2-9); NEUTROPHILS # (AUTO) 7.18 x10^3/uL (1.8-6.8); NEUTROPHILS % (AUTO) 65 % (42-75); PLATELET COUNT 293 x10^3/uL (130-400); RED BLOOD COUNT 4.94 x10^6/uL (3.82-5.3); RED CELL DISTRIBUTION WIDTH 18.3 % (9.6-15.2)
[2018-03-05 04:38] LABS: ANION GAP 7 mmol/L (5-15); CALCIUM 8.5 mg/dL (8.5-10.1); CHLORIDE 108 mmol/L (98-107)
[2018-03-05 04:39] LABS: HCT (SEDRATE) 37.9 % (34.6-47.8)
[2018-03-05 04:46] LABS: ALANINE AMINOTRANSFERASE 39 U/L (12-78); ALKALINE PHOSPHATASE 79 U/L (45-117); BILIRUBIN,TOTAL 0.3 mg/dL (0.2-1.0); C-REACTIVE PROTEIN, QUANT 0.98 mg/dL (0.02-0.49); CREATININE 0.96 mg/dL (0.55-1.02); TOTAL PROTEIN 7.6 g/dL (6.4-8.2)
[2018-03-05] MEDS: LEVOTHYROXINE 200 MCG TABLET PO SCH (06:20)
[2018-03-05] MEDS: HEPARIN 5,000 UNITS/ML, 1ML SQ SCH ×3 (06:21→22:19)
[2018-03-05 07:53] VITALS: BP 106/65
[2018-03-05] MEDS: METHYLNALTREXONE 12 MG/0.6 ML SQ SCH (09:48)
[2018-03-05] MEDS: POLYETHYLENE GLYCOL 17 GM PACKET PO SCH (09:48)
[2018-03-05 13:10] VITALS: BP 112/68
[2018-03-05] MEDS: SODIUM CHLORIDE 0.9% 1,000 ML IV SCH (14:10)
[2018-03-05] MEDS: FERROUS SULFATE 325 MG TABLET PO SCH (14:27)
[2018-03-05 19:48] VITALS: BP 111/73
[2018-03-05] MEDS: TEMAZEPAM 15 MG CAPSULE PO PRN (22:19)
[2018-03-06] MEDS: CEFTAROLINE 600 MG in SODIUM CHLORIDE 0.9% 100 ML IV SCH ×2 (00:30→08:36)
[2018-03-06] MEDS: ACETAMINOPHEN 325 MG TABLET PO SCH ×4 (04:01→20:56)
[2018-03-06 04:38] VITALS: BP 107/68
[2018-03-06] MEDS: SODIUM CHLORIDE 0.9% 1,000 ML IV SCH (05:05)
[2018-03-06] MEDS: LEVOTHYROXINE 200 MCG TABLET PO SCH (06:37)
[2018-03-06] MEDS: HEPARIN 5,000 UNITS/ML, 1ML SQ SCH ×3 (06:37→23:27)
[2018-03-06] MEDS: POLYETHYLENE GLYCOL 17 GM PACKET PO SCH (08:11)
[2018-03-06 08:12] VITALS: BP 101/53
[2018-03-06] MEDS: DIPHENHYDRAMINE 50 MG/ML, 1ML IVPush PRN (08:36)
[2018-03-06] MEDS: LINEZOLID 600 MG TABLET PO SCH ×2 (11:30→23:27)
[2018-03-06 14:07] VITALS: BP 121/73
[2018-03-06] MEDS ORDERED: LINE600T7 PO (15:56)
[2018-03-06] MEDS ORDERED: FERR-51 PO ×2 (15:56→16:27)
[2018-03-06] MEDS ORDERED: LEVO200T PO (16:27)
[2018-03-06 20:24] VITALS: BP 119/70
[2018-03-06] MEDS ORDERED: TEMAZEPAM 30 MG CAPSULE PO PRN (23:00)
[2018-03-07] MEDS: ACETAMINOPHEN 325 MG TABLET PO SCH ×2 (02:25→09:37)
[2018-03-07 02:27] VITALS: BP 119/76
[2018-03-07] MEDS: DIPHENHYDRAMINE 50 MG/ML, 1ML IVPush PRN (02:39)
[2018-03-07] MEDS: LEVOTHYROXINE 200 MCG TABLET PO SCH (05:04)
[2018-03-07] MEDS: HEPARIN 5,000 UNITS/ML, 1ML SQ SCH (05:05)
[2018-03-07 07:22] VITALS: BP 129/76
[2018-03-07] MEDS: POLYETHYLENE GLYCOL 17 GM PACKET PO SCH (09:12)
[2018-03-07] MEDS: METHYLNALTREXONE 12 MG/0.6 ML SQ SCH (09:12)
[2018-03-07] MEDS: LINEZOLID 600 MG TABLET PO SCH (09:37)
== END 2018-03-07 09:47 | disposition home or self-care (01) | DRG 987 ==
LOC: ED 01:37 → EDIP 03:11 → 3NW 03:16
PROVIDERS: ADMIT Internal Medicine; ATTEND Hospitalist
PROC: 0MB40ZZ Excision of Left Elbow Bursa and Ligament, Open Approach (ICD-10-PCS; principal; 2018-02-27 17:00)
DX: L03.114 Cellulitis of left upper limb (principal); N17.0 Acute kidney failure with tubular necrosis; E43 Unspecified severe protein-calorie malnutrition; C91.10 Chronic lymphocytic leukemia of B-cell type not having achieved remission; D50.9 Iron deficiency anemia, unspecified; R74.0 Nonspecific elevation of levels of transaminase and lactic acid dehydrogenase [LDH]; E66.01 Morbid (severe) obesity due to excess calories; E89.0 Postprocedural hypothyroidism; F17.200 Nicotine dependence, unspecified, uncomplicated; F41.9 Anxiety disorder, unspecified; K59.00 Constipation, unspecified; M71.122 Other infective bursitis, left elbow; Z51.5 Encounter for palliative care; Z86.14 Personal history of Methicillin resistant Staphylococcus aureus infection; Z88.0 Allergy status to penicillin; Z90.49 Acquired absence of other specified parts of digestive tract; Z88.6 Allergy status to analgesic agent
CPT/HCPCS: 36415; 80048; 80053; 80061; 81003; 81025; 82040; 82728; 83036; 83540; 83550; 83735; 84100; 84439; 84443; 84466; 85025; 85651; 86140; 87040; 87070; 87075; 87077; 87147; 87176; 87186; 87205; 96365; J0712; J1100; J1170; J1644; J1650; J1756; J1885; J2175; J2250; J2405; J2550; J2704; J3010; Q0162; J1200; J2270; J7030

== ENCOUNTER 2018-06-23 00:17 | Emergency (ER) | payer MEDICAID ==
[~2018-06-23] VITALS: Ht 167.6 cm; Wt 109.8 kg
[~2018-06-23 00:17] MED LIST changes: +FERR-51 PO; +LEVO200T PO; +LINE600T33 PO
[2018-06-23 00:19] VITALS: BP 124/78
[2018-06-23 00:54] LABS: BASOPHILS # (AUTO) 0.19 x10^3/uL (0-0.1); BASOPHILS % (AUTO) 1 % (0-1); EOSINOPHILS # (AUTO) 0.27 x10^3/uL (0-0.4); EOSINOPHILS % (AUTO) 2 % (1-7); LYMPHOCYTES # (AUTO) 3.73 x10^3/uL (1-3.4); LYMPHOCYTES % (AUTO) 22 % (22-44); MD NO; MEAN CORPUSCULAR HEMOGLOBIN 27.5 pg (27.0-34.8); MEAN CORPUSCULAR HGB CONC 33.6 g/dL (32.4-35.8); MEAN CORPUSCULAR VOLUME 81.8 fL (80-100); MEAN PLATELET VOLUME 7.2 fL (7.4-10.4); MONOCYTES # (AUTO) 1.08 x10^3/uL (0.2-0.8); MONOCYTES % (AUTO) 7 % (2-9); NEUTROPHILS # (AUTO) 11.54 x10^3/uL (1.8-6.8); NEUTROPHILS % (AUTO) 69 % (42-75); PLATELET COUNT 330 x10^3/uL (130-400); RED BLOOD COUNT 4.88 x10^6/uL (3.82-5.3); RED CELL DISTRIBUTION WIDTH 17.7 % (9.6-15.2)
[2018-06-23 01:01] LABS: ALBUMIN 3.6 g/dL (3.4-5.0); ANION GAP 9 mmol/L (5-15); CALCIUM 8.3 mg/dL (8.5-10.1); CHLORIDE 105 mmol/L (98-107); CREATININE 1.11 mg/dL (0.55-1.02)
[2018-06-23 01:19] LABS: HCG UR SG 1.031 (1.003-1.030); MICROSCOPIC AUTO
[2018-06-23 01:20] LABS: CULTURE INDICATED? YES
== END 2018-06-23 03:08 | disposition home or self-care (01) ==
LOC: ED 01:15
DX: L03.211 Cellulitis of face (principal); L03.114 Cellulitis of left upper limb; N30.00 Acute cystitis without hematuria; E03.9 Hypothyroidism, unspecified; F41.1 Generalized anxiety disorder; Z90.49 Acquired absence of other specified parts of digestive tract
CPT/HCPCS: 36415; 80048; 81001; 81025; 82040; 85025; 87086; 99284

== ENCOUNTER 2018-10-28 04:54 | Emergency (ER) | payer SELFPAY ==
[~2018-10-28] VITALS: Ht 167.6 cm; Wt 115.8 kg
--- NOTE | 2018-10-28 05:51 | NUR ---
ASSISTED FOR PELVIC EXAM
[2018-10-28] MEDS ORDERED: CEFTRIAXONE 250 MG IM ONE (06:00)
[2018-10-28] MEDS ORDERED: AZITHROMYCIN 250 MG TABLET PO ONE (06:00)
[2018-10-28] MEDS ORDERED: CEFTRIAXONE 250 MG ONE (06:19)
[2018-10-28] MEDS ORDERED: AZITHROMYCIN 250 MG TABLET ONE (06:19)
--- NOTE | 2018-10-28 06:29 | NUR ---
PT MEDICATED WITH ABX. VSS. PT RESTING WITH NO NEEDS AT THIS TIME. CALL LIGHT IN REACH
--- NOTE | 2018-10-28 06:54 | NUR ---
REPORT RECEIVED, CARE ASSUMED. PT SITTING UP ON GURNEY, NO ACUTE DISTRESS NOTED. WAITING FOR FURTHER DISPOSITION. NO NEEDS EXPRESSED AT THIS TIME.
[2018-10-28 06:59] LABS: CLUE CELLS NONE SEEN (NONE SEEN); WET PREP WBCS FEW (FEW)
--- NOTE | 2018-10-28 07:56 | NUR ---
PT DRESSED, AMB IN [place]. NO IV TO DC. REVIEWED DC INSTRUCTIONS WITH PT. UNDERSTANDING VERBALIZED. PT LEFT AMB, GAIT STEADY.
[2018-10-28 07:57] VITALS: BP 117/68
== END 2018-10-28 07:59 | disposition home or self-care (01) ==
LOC: ED 07:51
DX: A59.01 Trichomonal vulvovaginitis (principal); L03.211 Cellulitis of face; E03.9 Hypothyroidism, unspecified
CPT/HCPCS: 87210; 87491; 87591; 87808; 99283

== ENCOUNTER 2018-10-29 15:55 | Emergency (ER) | payer SELFPAY ==
[~2018-10-29] VITALS: Ht 167.6 cm; Wt 116.5 kg
--- NOTE | 2018-10-29 16:02 | NUR ---
NO ANSWER WHEN CALLED FOR TRIAGE.
[2018-10-29 16:11] VITALS: BP 123/70
[2018-10-29] MEDS ORDERED: LIDOCAINE-MPF 1%, 5ML INFIL ONE (16:30)
== END 2018-10-29 17:12 | disposition home or self-care (01) ==
LOC: ED 17:10
DX: Z48.01 Encounter for change or removal of surgical wound dressing (principal); E03.9 Hypothyroidism, unspecified
CPT/HCPCS: 99283

== ENCOUNTER 2019-03-20 02:01 | Emergency (ER) | payer MEDICAID ==
[~2019-03-20] VITALS: Ht 167.6 cm; Wt 109.0 kg
[2019-03-20 04:24] VITALS: BP 125/71
== END 2019-03-20 04:26 | disposition home or self-care (01) ==
LOC: ED 04:00
DX: S00.12XA Contusion of left eyelid and periocular area, initial encounter (principal); E03.9 Hypothyroidism, unspecified; F41.1 Generalized anxiety disorder; Z72.9 Problem related to lifestyle, unspecified; Z86.14 Personal history of Methicillin resistant Staphylococcus aureus infection; Y04.8XXA Assault by other bodily force, initial encounter; Y93.89 Activity, other specified; Y92.89 Other specified places as the place of occurrence of the external cause; Y99.8 Other external cause status
CPT/HCPCS: 70450; 70486; 93005; 99284

== ENCOUNTER 2019-03-29 21:21 | Emergency (ER) | payer MEDICAID, OTHER ==
[~2019-03-29] VITALS: Ht 167.6 cm; Wt 109.6 kg
[~2019-03-29 21:21] MED LIST changes: +LINE600T15 PO; -LINE600T33 PO
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
--- NOTE | 2019-03-29 22:09 | NUR ---
JOSEPHINE NUNN REFUSED TO PROVIDE RECORDS DESPITE HAVING SIGNED RELEASE FORM. SPOKE TO RECORDS DIVISION AND AND REQUEST FOR RECORDS MADE
[2019-03-29 22:30] LABS: BASOPHILS # (AUTO) 0.09 x10^3/uL (0-0.1); BASOPHILS % (AUTO) 1 % (0-1); EOSINOPHILS # (AUTO) 0.34 x10^3/uL (0-0.4); EOSINOPHILS % (AUTO) 3 % (1-7); LYMPHOCYTES # (AUTO) 2.78 x10^3/uL (1-3.4); LYMPHOCYTES % (AUTO) 24 % (22-44); MD NO; MEAN CORPUSCULAR HEMOGLOBIN 27.4 pg (27.0-34.8); MEAN CORPUSCULAR HGB CONC 32.6 g/dL (32.4-35.8); MEAN CORPUSCULAR VOLUME 84.2 fL (80-100); MEAN PLATELET VOLUME 7.5 fL (7.4-10.4); MONOCYTES # (AUTO) 0.76 x10^3/uL (0.2-0.8); MONOCYTES % (AUTO) 7 % (2-9); NEUTROPHILS # (AUTO) 7.51 x10^3/uL (1.8-6.8); NEUTROPHILS % (AUTO) 65 % (42-75); PLATELET COUNT 277 x10^3/uL (130-400); RED BLOOD COUNT 4.58 x10^6/uL (3.82-5.3); RED CELL DISTRIBUTION WIDTH 16.5 % (9.6-15.2)
[2019-03-29 22:36] LABS: ALANINE AMINOTRANSFERASE 21 U/L (12-78); ALBUMIN 3.3 g/dL (3.4-5.0); ANION GAP 6 mmol/L (5-15); CALCIUM 7.7 mg/dL (8.5-10.1); CHLORIDE 107 mmol/L (98-107); CREATININE 1.29 mg/dL (0.55-1.02)
[2019-03-29 22:40] LABS: ALKALINE PHOSPHATASE 52 U/L (45-117); BILIRUBIN,TOTAL 0.6 mg/dL (0.2-1.0); TOTAL PROTEIN 7.3 g/dL (6.4-8.2)
[2019-03-29 23:23] LABS: FREE T4 (FREE THYROXINE) 0.11 ng/dL (0.76-1.46)
[2019-03-30] MEDS ORDERED: LEVOTHYROXINE 100 MCG TABLET PO ONE
[2019-03-30 00:12] VITALS: BP 144/94
== END 2019-03-30 00:14 | disposition home or self-care (01) ==
LOC: ED 21:46
DX: S06.0X0A Concussion without loss of consciousness, initial encounter (principal); N93.8 Other specified abnormal uterine and vaginal bleeding; E89.0 Postprocedural hypothyroidism; F17.200 Nicotine dependence, unspecified, uncomplicated; Z72.89 Other problems related to lifestyle; Z90.49 Acquired absence of other specified parts of digestive tract; Y04.8XXA Assault by other bodily force, initial encounter; Y93.89 Activity, other specified; Y92.89 Other specified places as the place of occurrence of the external cause; Y99.8 Other external cause status
CPT/HCPCS: 36415; 80053; 84439; 84443; 84703; 85025; 99283

== ENCOUNTER 2019-04-16 10:38 | Emergency (ER) | payer MEDICAID, OTHER ==
[~2019-04-16] VITALS: Ht 167.6 cm; Wt 111.0 kg
[2019-04-16 15:23] VITALS: BP 103/67
== END 2019-04-16 15:28 | disposition home or self-care (01) ==
LOC: ED 15:15
DX: E89.0 Postprocedural hypothyroidism (principal); F41.1 Generalized anxiety disorder
CPT/HCPCS: 36415; 80048; 84439; 84443; 85025; 93005; 99284

== ENCOUNTER 2019-11-26 03:15 | Emergency (ER) | payer SELFPAY ==
[~2019-11-26] VITALS: Ht 170.2 cm; Wt 110.0 kg
[2019-11-26 03:20] VITALS: BP 136/81
--- NOTE | 2019-11-26 03:25 | NUR ---
RECEPTION SPECIALIST: STAFF ATTEMPTED TO GET PT TO USE A WHEELCHAIR, PT WAS ADAMANT THAT SHE WALK TO THE ROOM
--- NOTE | 2019-11-26 03:57 | NUR ---
Patient demanded crutches; advised patient she needed to be seen by a provider. Patient eloped.
== END 2019-11-26 03:58 | disposition left against medical advice (07) ==
LOC: ED 03:52
DX: M79.673 Pain in unspecified foot (principal); Z53.21 Procedure and treatment not carried out due to patient leaving prior to being seen by health care provider

== ENCOUNTER 2019-12-09 21:27 | Emergency (ER) | payer MEDICAID, OTHER ==
[~2019-12-09] VITALS: Ht 170.2 cm; Wt 111.3 kg
[2019-12-09 21:31] VITALS: BP 130/79
--- NOTE | 2019-12-09 21:45 | NUR ---
Pt presents to room stating she fractured her right foot 6 days ago. Pt states she removed her splint 2 days ago because "It was getting in the way of walking". Pt states she was given crutches but stopped using them because "They gave me blisters in my armpits". Pt goes on to report being diagnosed with an infection in her fractured but stopped taking the abx "because it got better".
[2019-12-09] MEDS ORDERED: ACETAMINOPHEN 500 MG TABLET ONE (21:57)
[2019-12-09] MEDS ORDERED: ACETAMINOPHEN 500 MG TABLET PO ONE (22:00)
== END 2019-12-09 23:03 | disposition home or self-care (01) ==
LOC: ED 22:30
DX: M79.671 Pain in right foot (principal); E03.9 Hypothyroidism, unspecified; Z90.89 Acquired absence of other organs; Z90.49 Acquired absence of other specified parts of digestive tract; F17.200 Nicotine dependence, unspecified, uncomplicated
CPT/HCPCS: 99283

== ENCOUNTER 2020-01-12 00:36 | Emergency (ER) | payer MEDICAID ==
[~2020-01-12] VITALS: Ht 170.2 cm; Wt 111.2 kg
[2020-01-12 00:37] VITALS: BP 126/90
--- NOTE | 2020-01-12 00:50 | NUR ---
PT REPORTS RIGHT FOOT FRACTURE 1 MONTH AGO, C/O PAIN AND SWELLING.
--- NOTE | 2020-01-12 00:54 | NUR ---
ER PROVIDER AT BEDSIDE FOR EVAL. PLACED VITAL SIGNS MONITORS. SAFETY FALL PRECUATIONS IN PLACE.
[2020-01-12] MEDS: KETOROLAC 30 MG/1 ML IM ONE ×2 (02:00→02:12)
[2020-01-12] MEDS ORDERED: KETOROLAC 30 MG/1 ML ONE (02:10)
== END 2020-01-12 02:19 | disposition home or self-care (01) ==
LOC: ED 00:57
DX: M19.071 Primary osteoarthritis, right ankle and foot (principal); Z72.9 Problem related to lifestyle, unspecified; F17.210 Nicotine dependence, cigarettes, uncomplicated; E03.9 Hypothyroidism, unspecified; Z90.89 Acquired absence of other organs; Z90.49 Acquired absence of other specified parts of digestive tract
CPT/HCPCS: 99282; 99406; J1885

== ENCOUNTER 2020-04-13 02:47 | Emergency (ER) | payer MEDICAID ==
[~2020-04-13] VITALS: Ht 170.2 cm; Wt 97.9 kg
--- NOTE | 2020-04-13 03:05 | NUR ---
PT AMBULATORY TO ROOM, AND CHANGED OUT OF PANTS WHILE STANDING AND PUTTING FULL WEIGHT ON EACH LEG.
[2020-04-13] MEDS ORDERED: IBUPROFEN 600 MG TABLET ONE (03:27)
[2020-04-13] MEDS ORDERED: IBUPROFEN 600 MG TABLET PO ONE (03:30)
--- NOTE | 2020-04-13 03:58 | NUR ---
PT LAYING IN BED, FOOT ELEVATED, ICE APPLIED, ALL NEEDS MET AT THIS TIME.
--- NOTE | 2020-04-13 04:25 | NUR ---
PT CONDITION UNCHANGED.
[2020-04-13 04:34] VITALS: BP 91/55
--- NOTE | 2020-04-13 04:45 | NUR ---
ERP TO BEDSIDE.
== END 2020-04-13 05:03 ==
LOC: ED 04:30
DX: G89.11 Acute pain due to trauma (principal); M25.571 Pain in right ankle and joints of right foot; E03.9 Hypothyroidism, unspecified; Z90.89 Acquired absence of other organs; Z90.49 Acquired absence of other specified parts of digestive tract; X50.0XXA Overexertion from strenuous movement or load, initial encounter; Y93.89 Activity, other specified; Y92.410 Unspecified street and highway as the place of occurrence of the external cause; Y99.8 Other external cause status
CPT/HCPCS: 99284

== ENCOUNTER 2020-05-04 21:00 | Emergency (ER) | payer MEDICAID ==
[~2020-05-04] VITALS: Ht 170.2 cm; Wt 99.1 kg
[2020-05-04 21:01] VITALS: BP 101/61
[2020-05-04] MEDS ORDERED: SULFAMETH./TRIMETHOPRIM DS 800MG/160MG TABLET ONE (21:20)
[2020-05-04] MEDS ORDERED: CEPHALEXIN 500 MG CAPSULE ONE (21:20)
[2020-05-04] MEDS ORDERED: SULFAMETH./TRIMETHOPRIM DS 800MG/160MG TABLET PO ONE (21:30)
[2020-05-04] MEDS ORDERED: CEPHALEXIN 500 MG CAPSULE PO ONE (21:30)
== END 2020-05-04 21:45 | disposition home or self-care (01) ==
LOC: ED 21:39
DX: L03.113 Cellulitis of right upper limb (principal); L03.114 Cellulitis of left upper limb; F17.210 Nicotine dependence, cigarettes, uncomplicated; E03.9 Hypothyroidism, unspecified; Z90.89 Acquired absence of other organs; Z90.49 Acquired absence of other specified parts of digestive tract
CPT/HCPCS: 99283; 99406